=== PATIENT | female | born 1975 | race Caucasian/White ===

== ENCOUNTER → 2019-03-25 | Day surgery (SDC) | payer OTHER ==
--- NOTE | 2019-03-26 07:43 | OP ---
DATE OF OPERATION: 03/25/2019 PREOPERATIVE DIAGNOSIS: Abnormal left mammography. POSTOPERATIVE DIAGNOSIS: Abnormal left mammography. PROCEDURE PERFORMED: Left breast stereotactic needle biopsy with clips. SURGEON: Inés Shah MD ANESTHESIA: Local. COMPLICATIONS: None. DISPOSITION: Stable at the end of the procedure. INDICATIONS FOR PROCEDURE: The patient underwent a routine screening mammography that noted bilateral calcifications. The right one appeared benign to me and the left one was slightly more pleomorphic in the upper outer breast. Therefore, recommendation was made for a needle biopsy for definitive diagnosis. The procedure of a left breast stereotactic needle biopsy with clip was discussed, and all her questions answered. DESCRIPTION OF PROCEDURE: The patient was brought to [facility] in [place] and laid prone on the [place] table. Using the lateral approach, the calcifications in upper outer left breast were identified. A sterile prep was obtained. A target was chosen. There was a positive stroke margin. Using Betadine and 1% lidocaine, a 9-gauge Suros device was used to take several cores from this area. The cores showed calcification within them. These were handled with the usual calcification protocol. A clip was deployed in the area. Hemostasis was assured with pressure. The incision was closed with Steri-Strips. She tolerated the procedure well and left the breast imaging center in good condition. INÉS SHAH M.D. [id number]
--- NOTE | 2019-03-26 13:32 | PATH ---
Surgical Pathology Report Patient Name: LULU SALCIDO [facility]. Rec. #: [id number] /Age/Gender: 1975 (Age: 43) / F Account: [id number] Location: [facility] Taken: 03/25/2019 Received: 03/25/2019 Reported: 03/26/2019 Physicians: Inés Adorno M.D. Specimen(s) Received A: LEFT BREAST SPECIMEN - WITH CALCIFICATIONS B: LEFT BREAST SPECIMEN - WITHOUT CALCIFICATIONS Clinical History Microcalcifications, nonpalpable lesion Final Diagnosis A. LEFT BREAST SPECIMEN WITH CALCIFICATIONS, STEREOTACTIC BIOPSY: BENIGN BREAST TISSUE SHOWING PROLIFERATIVE FIBROCYSTIC CHANGES WITH USUAL DUCTAL HYPERPLASIA (UDH), ADENOSIS, MICROCYSTS, STROMAL FIBROSIS, AND ASSOCIATED MICROCALCIFICATIONS. B. LEFT BREAST SPECIMEN WITHOUT CALCIFICATIONS, STEREOTACTIC BIOPSY: BENIGN BREAST TISSUE SHOWING PROLIFERATIVE FIBROCYSTIC CHANGES WITH USUAL DUCTAL HYPERPLASIA (UDH), COLUMNAR CELL CHANGE, MICROCYSTS, STROMAL FIBROSIS, AND ASSOCIATED MICROCALCIFICATIONS. Electronically Signed Eamon Almonte M.D. Gross Description A. Received in formalin, labeled "left breast specimen with calcifications" are multiple cores of light galindo and yellow-galindo tissue measuring 1.5 x 1.5 x 0.2 cm in aggregate. Entirely submitted in two cassettes. B. Received in formalin, labeled "left breast specimen without calcifications" are three cores of light galindo and yellow-galindo tissue measuring 1.5 x 1.0 x 0.3 cm in aggregate. Entirely submitted in one cassette. Time to formalin fixation: 5 minutes Total formalin fixation time: Approximately 7 hours __ LENNY/03/25/2019 suraj/03/25/2019
== END | disposition home or self-care (01) ==
LOC: FMAMMOTONE 11:40
PROVIDERS: ATTEND Surgery
PROC: 0HBU3ZX Excision of Left Breast, Percutaneous Approach, Diagnostic (ICD-10-PCS; principal; 2019-03-25)
DX: N60.12 Diffuse cystic mastopathy of left breast (principal); N60.22 Fibroadenosis of left breast; N60.32 Fibrosclerosis of left breast; N60.82 Other benign mammary dysplasias of left breast; N64.89 Other specified disorders of breast; R92.1 Mammographic calcification found on diagnostic imaging of breast
CPT/HCPCS: 19081; 87899; 88305-TC; A4648